=== PATIENT | female | born 1965 | race Caucasian/White ===

== ENCOUNTER → 2016-08-10 | Outpatient (REF) | payer MEDICAID ==
[2016-08-10 12:25] LABS: CHOLESTEROL LEVEL 189 MG/DL (<200); TRIGLYCERIDES LEVEL 61 MG/DL (<150)
[2016-08-11 09:48] LABS: CONTROL LINE INT CTR LINE PRESENT; HIV SCRN NEGATIVE (NEGATIVE); HIV SCRN1 NEGATIVE (NEGATIVE)
[2016-08-11 19:14] LABS: FREE T4 0.63 NG/DL (0.76-1.46)
== END | disposition home or self-care (01) ==
LOC: M LABDRAW1 11:01
PROVIDERS: ATTEND Internal Medicine
DX: Z13.1 Encounter for screening for diabetes mellitus (principal); Z11.4 Encounter for screening for human immunodeficiency virus [HIV]; Z13.220 Encounter for screening for lipoid disorders; R63.4 Abnormal weight loss

== ENCOUNTER → 2016-08-11 | Outpatient (REF) | payer MEDICAID | END | disposition home or self-care (01) | LOC: M SFHCPLAZ 18:38 | PROVIDERS: ATTEND Internal Medicine | DX: R79.89 Other specified abnormal findings of blood chemistry (principal) ==

== ENCOUNTER → 2016-12-17 | Outpatient (CLI) | payer OTHER ==
[2016-12-17 17:55] LABS: BASO % 0.6 % (0.0-1.0); EOS # 0.3 K/mm3 (0.0-0.50); EOS % 4.2 % (0.0-3.0); LARGE UNSTAINED CELL # 0.2 K/mm3 (0.0-0.4); LARGE UNSTAINED CELL % 2.4 % (0.0-4.0); LYMPH # 3.5 K/mm3 (1.5-4.5); LYMPH % 45.1 % (24.0-44.0); MEAN CORPUSCULAR HEMOGLOBIN 33.2 pg (27.0-33.0); MEAN CORPUSCULAR HGB CONC 32.6 g/dl (32.0-36.5); MEAN CORPUSCULAR VOLUME 101.9 fl (80.0-96.0); MONO # 0.3 K/mm3 (0.0-0.8); NEUTROPHILS # 3.2 K/mm3 (1.8-7.7); NEUTROPHILS % 43.8 % (36.0-66.0); PLATELET COUNT, AUTOMATED 269 k/mm3 (150-450); RED CELL DISTRIBUTION WIDTH 13.2 % (11.5-14.5); WHITE BLOOD COUNT 7.4 K/mm3 (4.0-10.0)
[2016-12-17 18:05] LABS: ALBUMIN 4.1 GM/DL (3.2-5.2); ALBUMIN/GLOBULIN RATIO 1.41 (1.00-1.93); ALKALINE PHOSPHATASE 77 U/L (45-117); ALT/SGPT 27 U/L (12-78); ANION GAP 6 MEQ/L (8-16); AST/SGOT 20 U/L (15-37); BILIRUBIN,TOTAL 0.4 MG/DL (0.2-1.0); BLOOD UREA NITROGEN 12 MG/DL (7-18); CALCIUM LEVEL 9.1 MG/DL (8.5-10.1); CARBON DIOXIDE LEVEL 29 MEQ/L (21-32); CHLORIDE LEVEL 105 MEQ/L (98-107); FREE T4 0.67 NG/DL (0.76-1.46); GLOMERULAR FILTRATION RATE > 60.0 (>51); GLUCOSE, FASTING 81 MG/DL (70-105); POTASSIUM SERUM 4.6 MEQ/L (3.5-5.1); SODIUM LEVEL 140 MEQ/L (136-145)
== END ==
LOC: M LAB 16:40
PROVIDERS: ATTEND Internal Medicine
DX: Z86.2 Personal history of diseases of the blood and blood-forming organs and certain disorders involving the immune mechanism (principal)

== ENCOUNTER → 2017-04-29 | Outpatient (REF) | payer OTHER | LOC: M SFHCWAGY 15:18 | PROVIDERS: ATTEND Nurse Practitioner Women's Health | DX: Z01.419 Encounter for gynecological examination (general) (routine) without abnormal findings (principal); Z11.51 Encounter for screening for human papillomavirus (HPV); Z11.3 Encounter for screening for infections with a predominantly sexual mode of transmission ==

== ENCOUNTER → 2017-06-13 | Outpatient (REF) | payer OTHER ==
[2017-06-13 18:27] LABS: BASO # 0.1 10^3/uL (0.0-0.2); BASO % 0.5 % (0.0-1.0); EOS # 0.3 10^3/uL (0.0-0.50); EOS % 2.1 % (0.0-3.0); IMMATURE GRANULOCYTE % 0.3 % (0-0); LYMPH # 3.5 10^3/uL (1.5-4.5); LYMPH % 29.3 % (24.0-44.0); MEAN CORPUSCULAR HEMOGLOBIN 33.2 pg (27.0-33.0); MEAN CORPUSCULAR HGB CONC 33.2 g/dl (32.0-36.5); MEAN CORPUSCULAR VOLUME 100.3 fl (80.0-96.0); MONO # 0.6 10^3/uL (0.0-0.8); NEUTROPHILS # 7.6 10^3/uL (1.8-7.7); NEUTROPHILS % 62.8 % (36.0-66.0); PLATELET COUNT, AUTOMATED 288 10^3/uL (150-450); RED CELL DISTRIBUTION WIDTH 13.5 % (11.5-14.5)
== END ==
LOC: M LABDRAW1 13:34
PROVIDERS: ATTEND Internal Medicine
DX: R79.89 Other specified abnormal findings of blood chemistry (principal); E03.9 Hypothyroidism, unspecified

== ENCOUNTER → 2017-11-25 | Outpatient (REF) | payer OTHER ==
[2017-11-25 18:41] LABS: ANION GAP 9 MEQ/L (8-16); BLOOD UREA NITROGEN 21 MG/DL (7-18); CALCIUM LEVEL 8.8 MG/DL (8.5-10.1); CARBON DIOXIDE LEVEL 25 MEQ/L (21-32); CHLORIDE LEVEL 107 MEQ/L (98-107); CREATININE FOR GFR 0.89 MG/DL (0.55-1.30); GLOMERULAR FILTRATION RATE > 60.0 (>51); GLUCOSE, FASTING 85 MG/DL (70-100); POTASSIUM SERUM 4.2 MEQ/L (3.5-5.1); SODIUM LEVEL 141 MEQ/L (136-145)
== END ==
LOC: M SFHCPLAZ 15:10
DX: R42 Dizziness and giddiness (principal); E03.9 Hypothyroidism, unspecified
CPT/HCPCS: 84443

== ENCOUNTER → 2017-11-26 | Outpatient (REF) | payer OTHER | LOC: M SFHCPLAZ 00:10 | DX: E03.9 Hypothyroidism, unspecified (principal) ==

== ENCOUNTER → 2018-07-13 | Outpatient (REF) | payer OTHER ==
[2018-07-13 16:35] LABS: FREE T4 0.61 NG/DL (0.76-1.46); THYROID STIMULATING HORMONE 24.7 uIU/ML (0.358-3.740)
== END ==
LOC: M SFHCPLAZ 13:07
DX: E03.9 Hypothyroidism, unspecified (principal)

== ENCOUNTER → 2018-08-25 | Outpatient (REF) | payer OTHER ==
[2018-08-25 18:51] LABS: FREE T4 1.1 NG/DL (0.76-1.46); THYROID STIMULATING HORMONE 6.3 uIU/ML (0.358-3.740)
== END ==
LOC: M SFHCPLAZ 14:43
DX: E03.9 Hypothyroidism, unspecified (principal)

== ENCOUNTER → 2018-09-05 | Outpatient (CLI) | payer OTHER ==
--- NOTE | 2018-09-05 11:31 | REPMRS ---
Patient History The patient states she had a clinical breast exam in 08/29 Patient has history of melanoma at age 38. Family history of unknown cancer at age 38 in sister. Digital Woman Screen Mammo: September 05, 2018 - Exam #: [id number] Bilateral CC and MLO view(s) were taken. Technologist: Marley Montgomery, Technologist Prior study comparison: April 29, 2017, digital woman screen mammo performed at [facility]. FINDINGS: The breast tissue is heterogeneously dense. This may lower the sensitivity of mammography. There is a moderate amount of heterogeneously dense fibroglandular tissue which is fairly symmetric. There is no interval development of dominant mass, architectural distortion, or clustered microcalcification typical of malignancy. There has been no change in the appearance of the mammogram from the prior studies. 3-D tomosynthesis shows no additional findings. Assessment: BI-RADS/ACR category 1 mammogram. Negative Mammogram. Recommendation Routine screening mammogram of both breasts in 1 year (for women over age 40). This patient's Lifetime Breast Cancer RIsk is estimated at 8.1 %. This mammogram was interpreted with the aid of an FDA-approved computer-aided dectection system. Electronically Signed By: Varun Roche MD 09/05/18 [id number]
== END ==
LOC: M WHC 09:33
PROVIDERS: ATTEND Nurse Practitioner Women's Health
DX: Z12.31 Encounter for screening mammogram for malignant neoplasm of breast (principal); Z85.820 Personal history of malignant melanoma of skin; Z80.8 Family history of malignant neoplasm of other organs or systems

== ENCOUNTER → 2018-09-05 | Outpatient (REF) | payer OTHER ==
[2018-09-08 14:22] LABS: HPV HYBRID CAPTURE II Negative (Negative)
== END ==
LOC: M SFHCWAGY 09:49
PROVIDERS: ATTEND Nurse Practitioner Women's Health
DX: Z01.419 Encounter for gynecological examination (general) (routine) without abnormal findings (principal); Z87.898 Personal history of other specified conditions; Z11.51 Encounter for screening for human papillomavirus (HPV)

== ENCOUNTER → 2018-10-06 | Outpatient (REF) | payer OTHER ==
[2018-10-06 17:49] LABS: FREE T4 1.49 NG/DL (0.76-1.46); THYROID STIMULATING HORMONE 0.867 uIU/ML (0.358-3.740)
== END ==
LOC: M SFHCPLAZ 14:34
DX: E03.9 Hypothyroidism, unspecified (principal)

== ENCOUNTER 2018-11-15 08:43 | Day surgery (SDC) | payer OTHER ==
[~2018-11-15] VITALS: Ht 157.5 cm; Wt 55.8 kg
[~2018-11-15 08:43] MED LIST: LIDOCAINE 2% INJ 100 MG/5 ML SDV (FOR ANES.) As Ordered ONE; NS 1,000 ML IV ONE; PROPOFOL 200 MG/20 ML VIAL As Ordered ONE; SYNT100T PO
[2018-11-15] MEDS ORDERED: PROPOFOL 200 MG/20 ML VIAL As Ordered ONE (09:46)
--- NOTE | 2018-11-15 09:52 | ROOR ---
Patient Name: Cynthia Link Procedure Date: 11/15/2018 9:19 AM Date of : 1965 Age: 53 Room: [facility] Gender: Female Note Status: Finalized Procedure: Total Colonoscopy to Cecum + Cold Snare Polypectomy + Hemoclips + ileoscopy Indications: Screening for colorectal malignant neoplasm, Last colonoscopy: 2007 Providers: Theron Motta MD Referring MD: Beverley RAI DO Requesting Provider: Medicines: Monitored Anesthesia Care Complications: No immediate complications. Procedure: Pre-Anesthesia Assessment: - The heart rate, respiratory rate, oxygen saturations, blood pressure, adequacy of pulmonary ventilation, and response to care were monitored throughout the procedure. The Colonoscope was introduced through the anus and advanced to the cecum, identified by appendiceal orifice and ileocecal valve. The colonoscopy was performed without difficulty. The patient tolerated the procedure well. The quality of the bowel preparation was good. Findings: The perianal and digital rectal examinations were normal. Non-bleeding internal hemorrhoids were found during retroflexion. The hemorrhoids were Grade I (internal hemorrhoids that do not prolapse). A large polyp was found in the proximal ascending colon. The polyp was sessile. The polyp was removed with a cold snare. Resection and retrieval were complete. To prevent bleeding after the polypectomy, three hemostatic clips were successfully placed (MR conditional). There was no bleeding at the end of the procedure. The exam was otherwise without abnormality on direct and retroflexion views. The terminal ileum appeared normal. Impression: - Non-bleeding internal hemorrhoids. - One large polyp in the proximal ascending colon, removed with a cold snare. Resected and retrieved. Clips (MR conditional) were placed. - The examination was otherwise normal on direct and retroflexion views. - The examined portion of the ileum was normal. - The exam was otherwise normal to the cecum. Recommendation: - Patient has a contact number available for emergencies. The signs and symptoms of potential delayed complications were discussed with the patient. Return to normal activities tomorrow. Written discharge instructions were provided to the patient. - High fiber diet. - Discharge patient to home. - Continue present medications. - Await pathology results. - Telephone GI clinic for pathology results in 1 week. - Repeat colonoscopy for surveillance based on pathology results. - Return to referring physician. - Check Portal Online for Path Results.([email or web address]) - The findings and recommendations were discussed with the patient's family. Theron Motta MD Theron Motta MD 11/15/2018 9:51:47 AM Electronically signed by Theron Motta MD Number of Addenda: 0 Note Initiated On: 11/15/2018 9:19 AM Estimated Blood Loss: Estimated blood loss: none.
[2018-11-15 10:10] VITALS: BP 125/74
== END 2018-11-15 10:24 | disposition home or self-care (01) ==
LOC: M OPP 08:43
PROVIDERS: ATTEND Internal Medicine Gastroenterology
DX: Z12.11 Encounter for screening for malignant neoplasm of colon (principal); D12.2 Benign neoplasm of ascending colon; K64.0 First degree hemorrhoids; E03.9 Hypothyroidism, unspecified; Z79.899 Other long term (current) drug therapy; F17.210 Nicotine dependence, cigarettes, uncomplicated

== ENCOUNTER → 2018-12-08 | Outpatient (REF) | payer OTHER ==
[~2018-12-08] MED LIST changes: -LIDOCAINE 2% INJ 100 MG/5 ML SDV (FOR ANES.) As Ordered ONE; -NS 1,000 ML IV ONE; -PROPOFOL 200 MG/20 ML VIAL As Ordered ONE
[2018-12-08 17:06] LABS: FREE T4 1.41 NG/DL (0.76-1.46); THYROID STIMULATING HORMONE 0.093 uIU/ML (0.358-3.740)
== END ==
LOC: M SFHCPLAZ 13:36
DX: E03.9 Hypothyroidism, unspecified (principal)

== ENCOUNTER → 2019-01-19 | Outpatient (REF) | payer OTHER ==
[2019-01-19 16:20] LABS: FREE T4 0.98 NG/DL (0.76-1.46); THYROID STIMULATING HORMONE 5.06 uIU/ML (0.358-3.740)
== END ==
LOC: M SFHCPLAZ 13:38
DX: E03.9 Hypothyroidism, unspecified (principal)

== ENCOUNTER → 2019-03-16 | Outpatient (REF) | payer OTHER ==
[2019-03-16 17:40] LABS: FREE T4 1.18 NG/DL (0.76-1.46); THYROID STIMULATING HORMONE 1.67 uIU/ML (0.358-3.740)
== END ==
LOC: M SFHCPLAZ 15:07
DX: E03.9 Hypothyroidism, unspecified (principal)

== ENCOUNTER → 2019-08-31 | Outpatient (REF) | payer OTHER ==
[2019-08-31 17:22] LABS: FREE T4 1.26 NG/DL (0.76-1.46); THYROID STIMULATING HORMONE 2.04 uIU/ML (0.358-3.740)
== END ==
LOC: M SFHCPLAZ 14:23
DX: E03.9 Hypothyroidism, unspecified (principal)

== ENCOUNTER → 2019-11-29 | Outpatient (REF) | payer OTHER ==
[2019-11-29 21:44] LABS: CHLAMYDIA DNA AMPLIFICATION NEGATIVE (NEGATIVE); GC DNA AMPLIFICATION NEGATIVE (NEGATIVE)
== END ==
LOC: M SFHCWAGY 16:55
PROVIDERS: ATTEND Nurse Practitioner Women's Health
DX: Z11.3 Encounter for screening for infections with a predominantly sexual mode of transmission (principal)

== ENCOUNTER 2020-01-07 18:31 | Observation (INO) | payer OTHER ==
[~2020-01-07] VITALS: Ht 157.5 cm; Wt 63.1 kg
[2020-01-07] MEDS ORDERED: ESCI10TA2 PO (18:38)
[2020-01-07] MEDS ORDERED: METOCLOPRAMIDE INJ 10MG/2ML VIAL (J2765 PER 1) IV ONE (19:15)
[2020-01-07] MEDS ORDERED: ACETAMINOPHEN 500 MG TAB PO ONE (19:15)
[2020-01-07] MEDS ORDERED: ISOVUE-370 76% 100ML VIAL As Ordered ONE (19:25)
--- NOTE | 2020-01-07 19:25 | REP ---
Clinical: Acute chest pain . Comparison: 04/24/2016 . Findings: The mediastinum and cardiac silhouette are stable and within normal limits for portable technique. The lung arana are clear without acute consolidation, effusion, or pneumothorax. Skeletal structures are intact. Impression: No acute cardiopulmonary process appreciated. Electronically Signed by Ronen Jarrell MD 01/07/2020 07:17 P
[2020-01-07 19:31] LABS: HEMATOCRIT 40.9 % (36.0-47.0); HEMOGLOBIN 13.4 g/dl (12.0-15.5); MEAN CORPUSCULAR HEMOGLOBIN 33.1 pg (27.0-33.0); MEAN CORPUSCULAR HGB CONC 32.8 g/dl (32.0-36.5); PLATELET COUNT, AUTOMATED 328 10^3/uL (150-450); RED BLOOD COUNT 4.05 10^6/uL (4.00-5.40); WHITE BLOOD COUNT 9.8 10^3/uL (4.0-10.0)
[2020-01-07 19:42] LABS: INR 0.94; PROTHROMBIN TIME 12.3 SECONDS (11.8-14.0)
[2020-01-07 20:07] LABS: ALBUMIN 3.7 GM/DL (3.2-5.2); ALT/SGPT 22 U/L (12-78); BILIRUBIN,DIRECT < 0.1 MG/DL (0.0-0.2); BILIRUBIN,TOTAL 0.2 MG/DL (0.2-1.0); CK-MB VALUE MASS < 1.0 NG/ML (<3.6); CPK CREATINE PHOSPHOKINASE 120 U/L (26-192); LIPASE 125 U/L (73-393); MB/CK RELATIVE INDEX 0.83 (< OR =4); TOTAL PROTEIN 6.9 GM/DL (6.4-8.2); TROPONIN I < 0.02 NG/ML (< 0.10)
--- NOTE | 2020-01-07 20:09 | REPVR ---
PROCEDURE INFORMATION: Exam: CT Angiography Neck With Contrast Exam date and time: 01/07/2020 7:27 PM Age: 54 years old Clinical indication: Numbness; Additional info: Arm numbness/headache TECHNIQUE: Imaging protocol: Computed tomography angiography of the neck with intravenous contrast. 3D rendering: MIP and/or 3D reconstructed images were created by the technologist. Radiation optimization: All CT scans at this facility use at least one of these dose optimization techniques: automated exposure control; mA and/or kV adjustment per patient size (includes targeted exams where dose is matched to clinical indication); or iterative reconstruction. Contrast material: ISOVUE 370; Contrast volume: 100 ml; Contrast route: INTRAVENOUS (IV); COMPARISON: No relevant prior studies available. FINDINGS: Right common carotid artery: No stenosis. No dissection or occlusion. Right internal carotid artery: No stenosis of the extracranial segment. No dissection or occlusion. Right external carotid artery: No occlusion or stenosis of the origin. Right vertebral artery: No stenosis. No dissection or occlusion. Left common carotid artery: No stenosis. No dissection or occlusion. Left internal carotid artery: No stenosis of the extracranial segment. No dissection or occlusion. Left external carotid artery: No occlusion or stenosis of the origin. Left vertebral artery: No stenosis. No dissection or occlusion. Bones/joints: No acute fracture. Soft tissues: Normal. No significant soft tissue swelling. Lungs: Emphysematous changes in bilateral lung apices. IMPRESSION: No acute abnormality. REFERENCES: NASCET CRITERIA. The degree of internal carotid artery stenosis is based on NASCET criteria. Normal is no stenosis. Mild is less than 50% stenosis. Moderate is 50-69% stenosis. Severe is 70% to 99% stenosis. Total occlusion is no detectable patent lumen. Electronically signed by: Orlando George On 01/07/2020 20:09:24 PM
--- NOTE | 2020-01-07 20:14 | REPVR ---
PROCEDURE INFORMATION: Exam: CT Angiography Head With Contrast Exam date and time: 01/07/2020 7:27 PM Age: 54 years old Clinical indication: Numbness; Additional info: Arm numbness/headache TECHNIQUE: Imaging protocol: Computed tomography angiography of the head with intravenous contrast. 3D rendering: MIP and/or 3D reconstructed images were created by the technologist. Radiation optimization: All CT scans at this facility use at least one of these dose optimization techniques: automated exposure control; mA and/or kV adjustment per patient size (includes targeted exams where dose is matched to clinical indication); or iterative reconstruction. Contrast material: ISOVUE 370; Contrast volume: 100 ml; Contrast route: INTRAVENOUS (IV); COMPARISON: No relevant prior studies available. FINDINGS: Anterior cerebral arteries: No occlusion or significant stenosis. No aneurysm. Right internal carotid artery: Intracranial segment is patent with no significant stenosis or occlusion. No aneurysm. Right middle cerebral artery: No occlusion or significant stenosis. No aneurysm. Right posterior cerebral artery: No occlusion or significant stenosis. No aneurysm. Right vertebral artery: No occlusion or significant stenosis. No aneurysm. Left internal carotid artery: Intracranial segment is patent with no significant stenosis or occlusion. No aneurysm. Left middle cerebral artery: No occlusion or significant stenosis. No aneurysm. Left posterior cerebral artery: No occlusion or significant stenosis. No aneurysm. Left vertebral artery: No occlusion or significant stenosis. No aneurysm. Basilar artery: No occlusion or significant stenosis. No aneurysm. IMPRESSION: No acute abnormality. Electronically signed by: Orlando George On 01/07/2020 20:14:19 PM
--- NOTE | 2020-01-07 20:15 | REPVR ---
PROCEDURE INFORMATION: Exam: CT Head Without Contrast Exam date and time: 01/07/2020 7:27 PM Age: 54 years old Clinical indication: Other: Arm numbness; Additional info: Arm numbness/headache TECHNIQUE: Imaging protocol: Computed tomography of the head without contrast. Radiation optimization: All CT scans at this facility use at least one of these dose optimization techniques: automated exposure control; mA and/or kV adjustment per patient size (includes targeted exams where dose is matched to clinical indication); or iterative reconstruction. COMPARISON: No relevant prior studies available. FINDINGS: Brain: Normal. No hemorrhage. Unremarkable white matter. No mass effect. Ventricles: Normal. No ventriculomegaly. Bones/joints: Unremarkable. No acute fracture. Sinuses: Visualized sinuses are unremarkable. No fluid levels. Mastoid air cells: Visualized mastoid air cells are well aerated. Soft tissues: Unremarkable. IMPRESSION: No acute intracranial abnormality. Electronically signed by: Orlando George On 01/07/2020 20:15:34 PM
[2020-01-07 20:24] LABS: ATYPICAL LYMPH 24 % (0-5); BASOPHILS 2 % (0-1); EOSINOPHILS 4 % (0-3); LYMPHOCYTES 36 % (16-44); MONOCYTES 2 % (0-5); NEUTROPHILS 32 % (28-66); OVALOCYTES 1+; PLATELET ESTIMATE NORMAL (NORMAL); POIKILOCYTOSIS 1+
[2020-01-07] MEDS ORDERED: ASPIRIN 325 MG TAB PO ONE (20:30)
[2020-01-07] MEDS: HEPARIN SOD (PORCINE) 5000UNITS/ML VIAL (J1644 PER 1000UNITS) SC SCH (21:00)
[2020-01-07] MEDS: ATORVASTATIN 20 MG TAB PO SCH (21:00)
[2020-01-07] MEDS: ESCITALOPRAM OXALATE 10 MG TAB (LEXAPRO) PO SCH (21:00)
[2020-01-07] MEDS ORDERED: ASPIRIN 81 MG CHEW TABLET PO ONE (21:15)
--- NOTE | 2020-01-07 21:33 | HPEPDOC ---
General Date of Admission 01/07/20 Date of Service: Jan 07, 2020 Chief Complaint The patient is a 54-year-old female admitted with a reason for visit of Headache, High Blood Pressure. Source: Patient Exam Limitations: No limitations Severity: Mild History of Present Illness Patient is 54 years old female with past medical history of migraine, active smoking, hypothyroidism, depression presented to the hospital with severe fronta l headache and paresthesias of the left arm. Patient stated that in the morning she started feeling lightheadedness, sweating, she stated that she had almost syncopized. She went home from her work and went to bed. When she woke up she started feeling severe headache 7 out of 10, frontal associated with left arm numbness. However patient stated that she slept on her left side recumbent position. In ER imaging study was negative, neurologist recommended to admit patient to the hospital for stroke workup. Home Medications Scheduled Escitalopram Oxalate (Escitalopram Oxalate) 10 Mg Tablet, 10 MG PO QHS, (Reported) Levothyroxine Sodium (Synthroid) 100 Mcg Tablet, 100 MCG PO QAM, (Reported) Allergies Coded Allergies: No Known Allergies (Verified , 03/26/04) Past Medical History Medical History migraine, active smoking, hypothyroidism, depression Family History Mother had a stroke and diabetes mellitus Father had PR and diabetes Social History * Smoker: current smoker Alcohol: occationally Drugs: denies A-FIB/CHADSVASC A-FIB History Current/History of A-Fib/PAF?: No Current PO Anticoag Therapy: No Review of Systems Constitutional: Denies: Chills Eyes: Denies: Pain, Vision change ENT: Reports: Head Aches Skin: Denies: Rash, Lesions Pulmonary: Denies: Dyspnea, Cough Cardiovascular: Denies: Chest Pain, Palpitations Gastrointestinal: Denies: Nausea, Vomiting Genitourinary: Denies: Dysuria, Frequency Hematologic: Denies: Bruising Endocrine: Denies: Polydipsia, Polyphagia Musculoskeletal: Denies: Neck Pain, Back Pain Neurological: Reports: Numbness (left arm, but when I saw patient , she didn't have it); Denies: Weakness Psych: Reports: Mood Normal Physical Examination General Exam: Positive: Alert, Cooperative Eye Exam: Positive: PERRLA ENT Exam: Positive: Atraumatic Neck Exam: Positive: Supple; Negative: JVD Chest Exam: Positive: Clear to auscultation Heart Exam: Positive: Rate Normal, Tachycardic Telemetry: Positive: No significant arrhythmia Abdomen Exam: Positive: Normal bowel sounds Extremity Exam: Negative: Clubbing, Cyanosis Skin Exam: Positive: Nl turgor and temperature Neuro Exam: Positive: Strength at 5/5 X4 ext, Sensation Intact, Reflexes 2+ Psych Exam: Positive: Mental status NL, Oriented x 3 Vital Signs Vital Signs Date Time Temp Pulse Resp B/P (MAP) Pulse Ox O2 Delivery O2 Flow Rate FiO2 01/07/20 19:01 79 98 01/07/20 18:31 98.1 16 168/76 (106) Room Air Laboratory Data Labs 24H Laboratory Tests 2 01/07/20 19:17: Neutrophils (%) (Auto) , Nucleated Red Blood Cells % (auto) 0.0, Neutrophils 32, Lymphocytes (Manual) 36, Monocytes (Manual) 2, Eosinophils (Manual) 4H, Basophils (Manual) 2H, Atypical Lymphocytes 24H, Poikilocytosis 1+, Macrocytosis 2+, Ovalocytes 1+, Platelet Estimate NORMAL, Prothrombin Time 12.3, Prothromb Time International Ratio 0.94, POC Glucose (Misc Panel) 131H, POC Sodium (Misc Panel) 141, POC Potassium (Misc Panel) 4.1, POC Chloride (Misc Panel) 104, POC Total CO2 (Misc Panel) 25.0, POC Blood Urea Nitrogen (Misc Panel 22, POC Ionized Calcium (Misc Panel) 4.8, POC Creatinine (Misc Panel) 0.8, POC Hematocrit (Misc Panel) 41.0, Total Bilirubin 0.2, Direct Bilirubin < 0.1, Aspartate Amino Transf (AST/SGOT) 19, Alanine Aminotransferase (ALT/SGPT) 22, Alkaline Phosphatase 87, Total Creatine Kinase 120, Creatine Kinase MB < 1.0, Creatine Kinase MB Relative Index 0.83, Troponin I < 0.02, Total Protein 6.9, Albumin 3.7, Albumin/Globulin Ratio 1.2, Lipase 125 CBC/BMP Laboratory Tests 01/07/20 19:17 Assessment/Plan Patient is 54 years old female with past medical history of migraine, active smoking, hypothyroidism, depression presented to the hospital with severe frontal headache and paresthesias of the left arm. Patient stated that in the morning she started feeling lightheadedness, sweating, she stated that she had almost syncopized. She went home from her work and went to bed. When she woke up she started feeling severe headache 7 out of 10, frontal associated with left arm numbness. However patient stated that she slept on her left side recumbent position. In ER imaging study was negative, neurologist recommended to admit patient to the hospital for stroke workup Problems (1) TIA (transient ischemic attack) Status: Acute Problem Text: Differential diagnosis includes TIA, manifestation of migraine. Neurological exam benign CT, CTA negative We'll proceed with MRI Aspirin 325, statin Will check lipid profile Consider neurological consult in the morning Plan / VTE VTE Prophylaxis Ordered?: Yes MARIA T WAHL DO Jan 07, 2020 21:33
[2020-01-07 22:08] LABS: CHOLESTEROL LEVEL 223 MG/DL (<200); HDL CHOLESTEROL 65 MG/DL (>40); LDL CHOLESTEROL 132 MG/DL (<100); NON-HDL-C 158 MG/DL; TRIGLYCERIDES LEVEL 129 MG/DL (<150)
--- NOTE | 2020-01-07 22:17 | REPVR ---
PROCEDURE INFORMATION: Exam: MR Head Without Contrast Exam date and time: 01/07/2020 10:06 PM Age: 54 years old Clinical indication: Other: High BP, headache; Additional info: Stroke TECHNIQUE: Imaging protocol: MR of the head without contrast. COMPARISON: CT Head without contrast 01/07/2020 7:25 PM FINDINGS: Brain: No acute infarct. Ventricles: Normal. No ventriculomegaly. Bones/joints: Unremarkable. Sinuses: Normal as visualized. No acute sinusitis. Mastoid air cells: Normal as visualized. No mastoid effusion. Orbits: Unremarkable. Soft tissues: Unremarkable. IMPRESSION: No acute intracranial abnormality. Electronically signed by: Orlando George On 01/07/2020 22:16:58 PM
[2020-01-08] MEDS: LEVOTHYROXINE 100MCG TABLET (0.1MG) PO SCH (05:50)
[2020-01-08 07:58] LABS: HEMATOCRIT 37.3 % (36.0-47.0); HEMOGLOBIN 12.4 g/dl (12.0-15.5); MEAN CORPUSCULAR HEMOGLOBIN 33.7 pg (27.0-33.0); MEAN CORPUSCULAR HGB CONC 33.2 g/dl (32.0-36.5); MEAN CORPUSCULAR VOLUME 101.4 fl (80.0-96.0); PLATELET COUNT, AUTOMATED 280 10^3/uL (150-450); RED BLOOD COUNT 3.68 10^6/uL (4.00-5.40); WHITE BLOOD COUNT 6.2 10^3/uL (4.0-10.0)
[2020-01-08 08:19] LABS: BLOOD UREA NITROGEN 14 MG/DL (7-18); CALCIUM LEVEL 8.5 MG/DL (8.5-10.1); CARBON DIOXIDE LEVEL 24 MEQ/L (21-32); CHLORIDE LEVEL 111 MEQ/L (98-107); CREATININE FOR GFR 0.87 MG/DL (0.55-1.30); GLOMERULAR FILTRATION RATE > 60.0 (>51); GLUCOSE, FASTING 158 MG/DL (70-100); POTASSIUM SERUM 3.9 MEQ/L (3.5-5.1); SODIUM LEVEL 142 MEQ/L (136-145)
[2020-01-08 09:31] VITALS: BP 116/61
[2020-01-08] MEDS: HEPARIN SOD (PORCINE) 5000UNITS/ML VIAL (J1644 PER 1000UNITS) SC SCH ×2 (09:42→20:37)
--- NOTE | 2020-01-08 10:28 | REP ---
DUPLEX CAROTID SONOGRAPHY: HISTORY: TIA. FINDINGS: Antegrade flow was observed in both vertebral arteries. RIGHT CAROTID: The right common carotid artery shows minimal diffuse intimal thickening. There is mild soft plaquing in the right carotid bulb and proximal ICA. Color flow and spectral Doppler interrogation are unremarkable on the right. Velocity Chart Right Carotid: PSV EDV Right CCA 94 cm/s Right ICA 78 cm/s 30 cm/s Right ECA 57 cm/s Right ICA/CCA ratio normal 0.8. IMPRESSION: Less than 50% category narrowing by velocity criteria right carotid. LEFT CAROTID: The left common carotid artery is unremarkable except for mild diffuse intimal thickening. There is minimal soft plaquing in the bulb and proximal ICA on the left. Color flow and spectral Doppler interrogation are unremarkable on the left. Velocity Chart Left Carotid: PSV EDV Left CCA 96 cm/s Left ICA 75 cm/s 26 cm/s Left ECA 61 cm/s Left ICA/CCA ratio normal 0.80. IMPRESSION: Less than 50% category narrowing in the left ICA by Doppler velocity criteria. Electronically Signed by Robert Roche MD 01/08/2020 11:11 A
[2020-01-08 10:46] VITALS: BP 137/67
[2020-01-08 12:00] VITALS: BP 130/64
[2020-01-08] MEDS ORDERED: ACETAMINOPHEN TAB 650MG DOSE (2X325MG) PO PRN (13:00)
[2020-01-08] MEDS: lisinopriL 5 MG TAB PO SCH (14:44)
[2020-01-08 14:45] VITALS: BP 136/62
--- NOTE | 2020-01-08 16:19 | ECGEPIP ---
[facility] - ED Test Date: 2020-01-07 Pat Name: ANGELI LEW Department: Room: 01 Gender: Female Hammer Smith: NATALIYA : 1965 Requested By: LONG Glover Order Number: [id number] Reading MD: Ashanti Marquis Measurements Intervals [place] Rate: 73 P: 70 AL: 143 QRS: 75 QRSD: 94 T: 60 QT: 378 QTc: 417 Interpretive Statements SINUS RHYTHM NO PRIOR Electronically Signed on 01-08-2020 16:19:32 EDT by Ashanti Marquis
--- NOTE | 2020-01-08 19:56 | ECHO ---
DATE OF PROCEDURE: 01/08/2020 Date of : 1965 Age: 54 Gender: Female Height: 62 inches Weight: 136 pounds Body surface area: 1.62 meters squared Inpatient: Progressive care unit (PCU), room 3229 REFERRING PHYSICIAN: Dr. Mindi Pena INDICATION: Transient ischemic attack (TIA). MEASUREMENTS: 2D Measurements: RV: 2.9 cm LV: 3.6 cm Septum: 1.0 cm Posterior wall: 1.0 cm Aortic root: 3.4 cm LA: 3.3 cm LVEF: 75% Doppler Measurements: AV: 1.13 meters per second LVOT: 1.0 meters per second LVOT diameter: 1.6 cm MV-E: 89, A: 97, EA ratio: 0.9 Early mitral deceleration time: 187 milliseconds E prime medial: 7.1, A prime medial: 9.5, E prime lateral: 6.9. Average E/E prime ratio: 12.7/PCWP: 18 mmHg. PV: 0.8 meters per second Pulmonary artery acceleration time: 127 milliseconds RVSP: 29 mmHg IVC: 1.8 cm COMMENTS: Normal sinus rhythm without intraventricular conduction disturbance. M-mode and two-dimensional echocardiography was performed with pulsed, continuous wave, color flow and tissue Doppler studies. Normal left ventricular size, wall thickness and wall motion. Normal left atrial size but grade 1 LV diastolic dysfunction and currently mildly elevated estimated mean left atrial pressure. Normal right heart chamber sizes and motion and estimated pulmonary arterial pressure. Normal inferior vena cava (IVC) size and collapse against an elevated central venous pressure. Normal aortic dimensions. A degree of aortic valvular thickening without functional valvular abnormality. Slightly thickened mitral valvular apparatus with normal leaflet excursion and no posterior systolic buckling and only trace mitral insufficiency. Normal appearing tricuspid valve with very mild insufficiency. No clear-cut pedunculated vegetation or intracardiac mass was visualized. No pericardial effusion. If a cardiac source of embolic material is seriously suspect, would recommend a transesophageal echocardiogram to further evaluate valvular structures.
[2020-01-08] MEDS: ESCITALOPRAM OXALATE 10 MG TAB (LEXAPRO) PO SCH (20:36)
[2020-01-08] MEDS: ATORVASTATIN 20 MG TAB PO SCH (20:36)
[2020-01-09] VITALS: BP 127/57
[2020-01-09 05:08] LABS: HEMATOCRIT 36.2 % (36.0-47.0); HEMOGLOBIN 11.8 g/dl (12.0-15.5); MEAN CORPUSCULAR HEMOGLOBIN 33.1 pg (27.0-33.0); MEAN CORPUSCULAR HGB CONC 32.6 g/dl (32.0-36.5); MEAN CORPUSCULAR VOLUME 101.4 fl (80.0-96.0); PLATELET COUNT, AUTOMATED 281 10^3/uL (150-450); RED BLOOD COUNT 3.57 10^6/uL (4.00-5.40); WHITE BLOOD COUNT 7.9 10^3/uL (4.0-10.0)
[2020-01-09 05:33] LABS: ALBUMIN 3.1 GM/DL (3.2-5.2); ALT/SGPT 21 U/L (12-78); BILIRUBIN,TOTAL 0.2 MG/DL (0.2-1.0); BLOOD UREA NITROGEN 17 MG/DL (7-18); CALCIUM LEVEL 8.6 MG/DL (8.5-10.1); CARBON DIOXIDE LEVEL 26 MEQ/L (21-32); CHLORIDE LEVEL 110 MEQ/L (98-107); CREATININE FOR GFR 0.76 MG/DL (0.55-1.30); GLOMERULAR FILTRATION RATE > 60.0 (>51); GLUCOSE, FASTING 98 MG/DL (70-100); POTASSIUM SERUM 4.5 MEQ/L (3.5-5.1); SODIUM LEVEL 142 MEQ/L (136-145); TOTAL PROTEIN 5.8 GM/DL (6.4-8.2)
[2020-01-09] MEDS: LEVOTHYROXINE 100MCG TABLET (0.1MG) PO SCH (05:56)
[2020-01-09 08:00] VITALS: BP 110/60
[2020-01-09 09:00] VITALS: BP 110/60
[2020-01-09] MEDS: lisinopriL 5 MG TAB PO SCH (09:00)
[2020-01-09] MEDS: HEPARIN SOD (PORCINE) 5000UNITS/ML VIAL (J1644 PER 1000UNITS) SC SCH (09:34)
--- NOTE | 2020-01-09 10:08 | DSES ---
DATE OF ADMISSION: 01/07/2020 DATE OF DISCHARGE: 01/09/2020 PRINCIPAL DIAGNOSIS: Probable complicated migraine versus neurapraxia, left arm from sleeping position. HISTORY: Cynthia Miles woke up with a throbbing headache and her left arm was numb. She slept on her arm but because of the headache came to the emergency room. She was admitted for further therapy. HOSPITAL COURSE: Patient admitted to a progressive care unit (PCU) bed. I do not have any notes from her first full day of hospitalization. I saw her on the second day full day of hospitalization. Her arm is back to normal. She thought she just slept on it wrong. Denies any neurologic symptoms. Walking the artis without difficulty. No weakness, numbness, palpitations or paresthesias. LABS: MRI of the brain was normal. Carotid ultrasound was normal, less than 50% bilaterally. CT angiogram of the head was normal. She had a neck CT angiogram that was normal. Significant labs: Today sodium is 142, potassium 4.5, BUN 17, creatinine 0.7, glucose 98. White count 7.9, hemoglobin 11.8, platelets 281. On the day of discharge, her blood pressure is 110/60, pulse 56, respiratory rate 18, 98% oxygen saturations. She is alert, conversant, no acute distress. No dysarthria, facial droop or weakness. Lungs clear. Heart regular rhythm. Abdomen soft, nontender. No peripheral edema. Normal strength, reflexes, coordination and sensation on individual testing. Gait is normal. An echocardiogram was performed. It was essentially normal. Left atrium 32 mm, ejection fraction 75%. No significant valvular abnormalities. DISPOSITION: Discharged home improved in stable condition. She is followed by the residency clinic. She should followup there as well in a week. 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 Diet is as tolerated. No added salt. No restriction of activities. Her medications will continue to be Lexapro 10 at bedtime, levothyroxine 100 mcg daily. She was started on lisinopril 5 mg on admission. Her pressure is soft this morning 110/60 and her lisinopril had been held. I think her blood pressure is up due to situational anxiety and pain from the headache and I did not continue the lisinopril at discharge as her blood pressures have been low today.
[2020-01-09 12:00] VITALS: BP 135/70
== END 2020-01-09 12:42 | disposition home or self-care (01) ==
LOC: M ED 18:31 → M ED INP 18:32 → ENRESERV 01-08 06:30 → M PCU 01-08 09:09
PROVIDERS: ADMIT Internal Medicine; ATTEND Internal Medicine
DX: R51 Headache (principal); R20.2 Paresthesia of skin; R03.0 Elevated blood-pressure reading, without diagnosis of hypertension; G43.909 Migraine, unspecified, not intractable, without status migrainosus; E03.9 Hypothyroidism, unspecified; F32.9 Major depressive disorder, single episode, unspecified; F17.210 Nicotine dependence, cigarettes, uncomplicated; Z82.3 Family history of stroke; Z83.3 Family history of diabetes mellitus; Z82.49 Family history of ischemic heart disease and other diseases of the circulatory system; Z79.899 Other long term (current) drug therapy
CPT/HCPCS: 36415; 70450; 70496; 70498; 70551; 71045; 80047; 80048; 80053; 80061; 80076; 82550; 82553; 83690; 83735; 85025; 85027; 85610; 93005; 93041; 93306; 93880; 94760; 96372; 96374; 97161; 97165; 99284; 99285; J1644; J2765; Q9967

== ENCOUNTER → 2020-11-17 | Outpatient (REF) | payer OTHER ==
[~2020-11-17] MED LIST changes: +ESCI10TA16 PO
[2020-11-17 15:26] LABS: BASO # 0.1 10^3/uL (0.0-0.2); BASO % 0.9 % (0.0-1.0); EOS # 0.4 10^3/uL (0.0-0.5); EOS % 4.5 % (0.0-3.0); HEMATOCRIT 39.2 % (36.0-47.0); HEMOGLOBIN 12.8 g/dl (12.0-15.5); LYMPH # 3.2 10^3/uL (1.5-5.0); LYMPH % 37.4 % (24.0-44.0); MEAN CORPUSCULAR HEMOGLOBIN 33.3 pg (27.0-33.0); MEAN CORPUSCULAR HGB CONC 32.7 g/dl (32.0-36.5); MEAN CORPUSCULAR VOLUME 102.1 fl (80.0-96.0); MONO # 0.6 10^3/uL (0.0-0.8); MONO % 6.8 % (2.0-8.0); NEUTROPHILS # 4.2 10^3/uL (1.5-8.5); NEUTROPHILS % 49.9 % (36.0-66.0); PLATELET COUNT, AUTOMATED 309 10^3/uL (150-450); RED BLOOD COUNT 3.84 10^6/uL (4.00-5.40); WHITE BLOOD COUNT 8.5 10^3/uL (4.0-10.0)
[2020-11-17 16:01] LABS: ALT/SGPT 19 U/L (12-78); BILIRUBIN,TOTAL 0.3 MG/DL (0.2-1.0); BLOOD UREA NITROGEN 16 MG/DL (7-18); CALCIUM LEVEL 9.4 MG/DL (8.5-10.1); CARBON DIOXIDE LEVEL 28 MEQ/L (21-32); CHLORIDE LEVEL 108 MEQ/L (98-107); CREATININE FOR GFR 0.75 MG/DL (0.55-1.30); GLOMERULAR FILTRATION RATE > 60.0 (>51); GLUCOSE, FASTING 79 MG/DL (70-100); POTASSIUM SERUM 4.1 MEQ/L (3.5-5.1); SODIUM LEVEL 141 MEQ/L (136-145); TOTAL PROTEIN 7.2 GM/DL (6.4-8.2)
[2020-11-17 21:02] LABS: FREE T4 0.89 NG/DL (0.76-1.46)
== END ==
LOC: M SFHCPLAZ 13:16
PROVIDERS: ATTEND Family Medicine
DX: R42 Dizziness and giddiness (principal); E03.9 Hypothyroidism, unspecified

== ENCOUNTER → 2021-01-06 | Outpatient (CLI) | payer OTHER ==
--- NOTE | 2021-01-06 16:30 | REP ---
INDICATION: PAIN IN LEFT HIP. COMPARISON: 10/05/2013 TECHNIQUE: AP and frog-lateral views FINDINGS: Once again, the hip joint space is symmetric and relatively well maintained. No acute fracture, dislocation, subluxation, or buttressing has developed. IMPRESSION: Within normal limits. Essentially unchanged from the prior exam. <Electronically signed by Marcio Rose > 01/06/21 [id number]
== END ==
LOC: M RAD 16:02
PROVIDERS: ATTEND Student in an Organized Health Care Education/Training Program
DX: M25.552 Pain in left hip (principal)

== ENCOUNTER → 2021-01-08 | Outpatient (CLI) | payer OTHER ==
[2021-01-08 18:37] LABS: HIV 1&2 SCREEN CENTAUR NEGATIVE (NEGATIVE)
== END ==
LOC: M PLALAB 15:06
PROVIDERS: ATTEND Student in an Organized Health Care Education/Training Program
DX: E03.9 Hypothyroidism, unspecified (principal)

== ENCOUNTER → 2021-01-14 | Outpatient (CLI) | payer OTHER ==
--- NOTE | 2021-01-14 10:23 | REP ---
INDICATION: CLARK SCR MAMMO. COMPARISON: Multiple TECHNIQUE: Digital screening mammography was carried out bilaterally in the CC and MLO projections using both 2D and 3D modalities and compared to the prior exams. By history, patient has no complaints of a palpable breast abnormality or other significant breast complaints. FINDINGS: The breasts are unchanged in size and shape. Once again, dense heterogenous fibroglandular elements are bilaterally to such a degree that the sensitivity of the mammogram in detecting cancers decreased. In the left breast retroareolar region lower slightly outer aspect there is a small potential eros density. No other suspicious features are seen in either breast. Stable benign calcifications are seen bilaterally. There is no skin thickening or nipple retraction. The Volpara volumetric breast density pattern is C. IMPRESSION: BIRADS/ACR category 0 mammogram. Potential eros density seen in the left breast as described above for which diagnostic digital magnified spot compression views are recommended in the CC and MLO projections along with diagnostic ultrasonography if indicated. This patient's Tyrer-Cuzick lifetime breast cancer risk assessment score is 7.6%. This mammogram was interpreted with the aid of an FDA-approved computer-aided detection system. The patient states she had a clinical breast exam in January 2021. The patient letter being requested is M0 RECOMMENDATION: As above <Electronically signed by Marcio Rose > 01/14/21 0792
== END ==
LOC: M WHC 08:43 → M WBI 08:43
PROVIDERS: ATTEND Nurse Practitioner Women's Health
DX: Z12.31 Encounter for screening mammogram for malignant neoplasm of breast (principal)

== ENCOUNTER → 2021-01-14 | Outpatient (REF) | payer OTHER | LOC: M SFHCWAGY 13:09 | PROVIDERS: ATTEND Nurse Practitioner Women's Health | DX: Z12.72 Encounter for screening for malignant neoplasm of vagina (principal); Z01.419 Encounter for gynecological examination (general) (routine) without abnormal findings ==

== ENCOUNTER 2021-01-22 16:19 | Emergency (ER) | payer OTHER ==
[~2021-01-22] VITALS: Ht 157.5 cm; Wt 66.4 kg
[2021-01-22] MEDS ORDERED: ACETAMINOPHEN 325 MG TAB PO ONE (16:45)
--- NOTE | 2021-01-22 17:02 | REP ---
INDICATION: CHEST PAIN. COMPARISON: Comparison portable chest x-ray January 07, 2020. TECHNIQUE: Portable upright AP chest radiograph. FINDINGS: There is increased density behind the heart in the left base and a portion of the left hemidiaphragm is obscured. This may be infiltrate and or a small quantity of left pleural fluid. It is unchanged from the comparison radiograph. Heart is not enlarged. Lung arana are otherwise clear. Pulmonary vasculature is not increased.. No acute bony abnormality. There are 2 orthopedic anchors in the left glenoid. IMPRESSION: Increased density left base partially obscuring left hemidiaphragm. Infiltrate and/or effusion suspected.. <Electronically signed by Varun Roche > 01/22/21 [id number]
--- NOTE | 2021-01-22 17:06 | ECGEPIP ---
[facility] - ED Test Date: 2021-01-22 Pat Name: ANGELI LEW Department: Room: - Gender: Female [employer] Technician: JT : 1965 Requested By: ANDREWS ALLEN Order Number: [id number] Reading MD: Andrews Chavez Measurements Intervals [place] Rate: 115 P: 83 WI: 122 QRS: 79 QRSD: 80 T: 51 QT: 286 QTc: 395 Interpretive Statements Sinus tachycardia Possible Left atrial enlargement Baseline artifact Similar to tracing done 01-07-20 Electronically Signed on 01-22-2021 17:05:55 EDT by Andrews Chavez
[2021-01-22 17:15] LABS: BASO % 0.3 % (0.0-1.0); EOS # 0.2 10^3/uL (0.0-0.5); EOS % 1.6 % (0.0-3.0); HEMATOCRIT 40.2 % (36.0-47.0); HEMOGLOBIN 13.5 g/dl (12.0-15.5); LYMPH # 1.9 10^3/uL (1.5-5.0); LYMPH % 13.7 % (24.0-44.0); MEAN CORPUSCULAR HEMOGLOBIN 33.4 pg (27.0-33.0); MEAN CORPUSCULAR HGB CONC 33.6 g/dl (32.0-36.5); MEAN CORPUSCULAR VOLUME 99.5 fl (80.0-96.0); MONO # 0.6 10^3/uL (0.0-0.8); MONO % 4.2 % (2.0-8.0); NEUTROPHILS # 11.3 10^3/uL (1.5-8.5); NEUTROPHILS % 79.6 % (36.0-66.0); PLATELET COUNT, AUTOMATED 285 10^3/uL (150-450); RED BLOOD COUNT 4.04 10^6/uL (4.00-5.40); WHITE BLOOD COUNT 14.2 10^3/uL (4.0-10.0)
[2021-01-22 17:40] LABS: ALT/SGPT 51 U/L (12-78); BILIRUBIN,DIRECT < 0.1 MG/DL (0.0-0.2); BILIRUBIN,TOTAL 0.3 MG/DL (0.2-1.0); LIPASE 77 U/L (73-393); THYROID STIMULATING HORMONE 0.259 uIU/ML (0.358-3.740); TOTAL PROTEIN 7.4 GM/DL (6.4-8.2)
[2021-01-22] MEDS ORDERED: ISOVUE-370 76% 100ML VIAL As Ordered ONE (17:46)
[2021-01-22] MEDS ORDERED: ASPI81TA26 (18:01)
[2021-01-22] MEDS ORDERED: ESCITALOPRAM (18:01)
[2021-01-22] MEDS ORDERED: NICO7DIS30 (18:01)
[2021-01-22] MEDS ORDERED: LEVO112T2 (18:01)
--- NOTE | 2021-01-22 18:11 | REPVR ---
PROCEDURE INFORMATION: Exam: CTA Chest With Contrast Exam date and time: 01/22/2021 5:41 PM Age: 55 years old Clinical indication: Shortness of breath; Additional info: Abrupt onset of SOB; R/O pe TECHNIQUE: Imaging protocol: Computed tomographic angiography of the chest with contrast. 3D rendering (Not supervised by radiologist): MIP reconstructed images were created by the technologist. Radiation optimization: All CT scans at this facility use at least one of these dose optimization techniques: automated exposure control; mA and/or kV adjustment per patient size (includes targeted exams where dose is matched to clinical indication); or iterative reconstruction. Contrast material: ISOVUE 370; Contrast volume: 75 ml; Contrast route: INTRAVENOUS (IV); COMPARISON: SC PORTABLE CHEST X-RAY 01/22/2021 4:43 PM FINDINGS: Pulmonary arteries: No pulmonary artery embolism identified. Aorta: No aortic aneurysm. No aortic dissection. Lungs: Left basilar pulmonary consolidative densities. Inferior lingular pulmonary subsegmental atelectasis. Pleural spaces: Unremarkable. No pneumothorax. No pleural effusion. Heart: Normal. No pericardial effusion. Lymph nodes: No enlarged lymph nodes. Bones/joints: Diffuse osteopenia. Mild thoracic spine vertebral body marginal osteophytes. Left scapular inferior glenoid tuberosity suture anchors. Soft tissues: Unremarkable. IMPRESSION: 1. No pulmonary artery embolism identified. 2. Left basilar pulmonary consolidative densities. Pneumonitis is difficult to exclude. Clinical correlation is recommended. Electronically signed by: Jay Shaikh On 01/22/2021 18:10:53 PM
[2021-01-22] MEDS ORDERED: NS 1,000 ML IV ONE (19:40)
[2021-01-22] MEDS ORDERED: LevoFLOXacin IV 750 MG in IV 1 EA IV ONE (19:40)
[2021-01-22] MEDS ORDERED: KETOROLAC 30 MG/ML 1ML VIAL IV ONE (19:40)
[2021-01-22] MEDS ORDERED: LEVO750T14 PO (21:32)
[2021-01-22 21:45] VITALS: BP 120/57
== END 2021-01-22 21:51 | disposition home or self-care (01) ==
LOC: M ED 16:19
DX: J18.9 Pneumonia, unspecified organism (principal); R00.0 Tachycardia, unspecified; F32.9 Major depressive disorder, single episode, unspecified; E03.9 Hypothyroidism, unspecified; F17.200 Nicotine dependence, unspecified, uncomplicated
CPT/HCPCS: 71045; 71275; 80047; 80076; 83690; 84443; 85025; 87040; 93005; 93041; 94760; 96365; 96366; 96375; 99285; J1885; J1956; Q9967

== ENCOUNTER → 2021-02-09 | Outpatient (CLI) | payer OTHER ==
[~2021-02-09] MED LIST changes: +ASPI81TA26; +ESCITALOPRAM; +LEVO112T2; +LEVO750T14 PO; +NICO7DIS30
--- NOTE | 2021-02-09 12:05 | REP ---
INDICATION: ADDL VIEWS - LEFT BREAST RUSS DENSITY. COMPARISON: Multiple the latest screening examination of 01/14/2021. TECHNIQUE: Diagnostic digital magnified spot compression views of the left breast were obtained in the CC and MLO projections over the region of interest, the lower outer retroareolar region. In addition, diagnostic ultrasonography over the region was obtained. FINDINGS: The tiny retroareolar nodular density seen on the screening examination persists on the diagnostic digital magnified spot compression views. Diagnostic ultrasonography of this region shows a round smoothly marginated 7 mm sized anechoic structure which exhibits posterior wall enhancement and increased through transmission. Shear wave elastography was performed on this showing very low kPa values. IMPRESSION: BIRADS/ACR category 2 benign findings. There is a simple cyst in the left breast as described above. The patient letter being requested is M1. RECOMMENDATION: Repeat screening mammography recommended 1 year (for women over 40). <Electronically signed by Marcio Rose > 02/09/21 [id number]
== END ==
LOC: M WHC 08:38
PROVIDERS: ATTEND Nurse Practitioner Women's Health
DX: N60.02 Solitary cyst of left breast (principal)

== ENCOUNTER → 2021-05-15 | Outpatient (CLI) | payer OTHER ==
[2021-05-15 15:53] LABS: BLOOD UREA NITROGEN 18 MG/DL (7-18); CALCIUM LEVEL 9.4 MG/DL (8.5-10.1); CARBON DIOXIDE LEVEL 26 MEQ/L (21-32); CHLORIDE LEVEL 108 MEQ/L (98-107); CREATININE FOR GFR 1.02 MG/DL (0.55-1.30); FREE T4 1.17 NG/DL (0.76-1.46); GLOMERULAR FILTRATION RATE > 60.0 (>51); GLUCOSE, FASTING 103 MG/DL (70-100); POTASSIUM SERUM 4.1 MEQ/L (3.5-5.1); SODIUM LEVEL 139 MEQ/L (136-145)
--- NOTE | 2021-05-18 08:27 | REP ---
INDICATION: PNEUMONIA, UNSPECIFIED ORGANISM. COMPARISON: 01/22/2021 a portable exam TECHNIQUE: PA and lateral FINDINGS: The cardiomediastinal silhouette is within normal limits. The patchy left lung base opacities seen on the prior portable examination have markedly improved with a minimal residual. Pleural angles remain sharp. Lung arana are otherwise clear. The osseous structures stable and intact. IMPRESSION: Significant improvement. <Electronically signed by Marcio Rose > 05/18/21 [id number]
== END ==
LOC: M PLALAB 14:08
PROVIDERS: ATTEND Student in an Organized Health Care Education/Training Program
DX: J18.9 Pneumonia, unspecified organism (principal); E03.9 Hypothyroidism, unspecified; F41.9 Anxiety disorder, unspecified

== ENCOUNTER → 2021-11-30 | Outpatient (REF) | payer OTHER | LOC: M SFHCPLAZ 14:44 | PROVIDERS: ATTEND Family Medicine | DX: Z53.9 Procedure and treatment not carried out, unspecified reason (principal) ==

== ENCOUNTER → 2021-11-30 | Outpatient (CLI) | payer OTHER ==
[2021-11-30 18:11] LABS: BLOOD UREA NITROGEN 15 MG/DL (7-18); CALCIUM LEVEL 9.2 MG/DL (8.5-10.1); CARBON DIOXIDE LEVEL 27 MEQ/L (21-32); CHLORIDE LEVEL 106 MEQ/L (98-107); CHOLESTEROL LEVEL 224 MG/DL (<200); CHOLESTEROL RISK RATIO 3.929 (<5); CREATININE FOR GFR 0.87 MG/DL (0.55-1.30); GLOMERULAR FILTRATION RATE > 60.0 (>51); GLUCOSE, FASTING 90 MG/DL (70-100); HDL CHOLESTEROL 57 MG/DL (>40); LDL CHOLESTEROL 128 MG/DL (<100); NON-HDL-C 167 MG/DL; POTASSIUM SERUM 4.2 MEQ/L (3.5-5.1); SODIUM LEVEL 138 MEQ/L (136-145); TRIGLYCERIDES LEVEL 197 MG/DL (<150)
== END ==
LOC: M PLALAB 14:53
PROVIDERS: ATTEND Student in an Organized Health Care Education/Training Program
DX: F32.A Depression, unspecified (principal); Z86.79 Personal history of other diseases of the circulatory system

== ENCOUNTER → 2022-05-06 | Outpatient (CLI) | payer OTHER | LOC: M WHC 09:24 | PROVIDERS: ATTEND Advanced Practice Midwife | DX: Z12.31 Encounter for screening mammogram for malignant neoplasm of breast (principal); Z85.9 Personal history of malignant neoplasm, unspecified; Z80.9 Family history of malignant neoplasm, unspecified ==

== ENCOUNTER → 2022-07-21 | Outpatient (CLI) | payer OTHER ==
[~2022-07-21] MED LIST changes: -LEVO112T2; +LEVO112T2 PO
== END ==
LOC: M LABSMTC 09:49
PROVIDERS: ATTEND Internal Medicine Gastroenterology
DX: Z01.812 Encounter for preprocedural laboratory examination (principal); Z11.52 Encounter for screening for COVID-19

== ENCOUNTER 2022-07-26 10:40 | Day surgery (SDC) | payer OTHER ==
[~2022-07-26] VITALS: Ht 157.5 cm; Wt 63.5 kg
[~2022-07-26 10:40] MED LIST changes: +NS 1,000 ML IV ONE
[2022-07-26] MEDS ORDERED: LIDOCAINE 2% 100MG/5ML SDV (FOR ANES.) As Ordered ONE (10:58)
[2022-07-26] MEDS ORDERED: propofoL 200 MG/20 ML VIAL As Ordered ONE ×2 (10:58→12:00)
[2022-07-26 12:20] VITALS: BP 133/63
== END 2022-07-26 12:41 | disposition home or self-care (01) ==
LOC: M OPP 10:40
PROVIDERS: ATTEND Internal Medicine Gastroenterology
DX: Z12.11 Encounter for screening for malignant neoplasm of colon (principal); Z86.010 Personal history of colon polyps; K64.0 First degree hemorrhoids; K57.30 Diverticulosis of large intestine without perforation or abscess without bleeding; Z79.890 Hormone replacement therapy; E03.9 Hypothyroidism, unspecified; F32.9 Major depressive disorder, single episode, unspecified; F41.9 Anxiety disorder, unspecified; E78.00 Pure hypercholesterolemia, unspecified; D64.9 Anemia, unspecified; I10 Essential (primary) hypertension; G43.909 Migraine, unspecified, not intractable, without status migrainosus; Z86.73 Personal history of transient ischemic attack (TIA), and cerebral infarction without residual deficits; Z80.41 Family history of malignant neoplasm of ovary; F17.200 Nicotine dependence, unspecified, uncomplicated

== ENCOUNTER → 2022-08-17 | Outpatient (REF) | payer OTHER ==
[~2022-08-17] MED LIST changes: -NS 1,000 ML IV ONE
== END ==
LOC: M SFHCPLAZ 15:47
PROVIDERS: ATTEND Family Medicine
DX: E03.9 Hypothyroidism, unspecified (principal); Z00.00 Encounter for general adult medical examination without abnormal findings; Z53.8 Procedure and treatment not carried out for other reasons

== ENCOUNTER → 2022-08-17 | Outpatient (CLI) | payer OTHER ==
[2022-08-17 17:26] LABS: BASO # 0.1 10^3/uL (0.0-0.2); BASO % 0.8 % (0.0-1.0); EOS # 0.4 10^3/uL (0.0-0.5); EOS % 4.5 % (0.0-3.0); HEMATOCRIT 41.8 % (36.0-47.0); HEMOGLOBIN 13.8 g/dl (12.0-15.5); LYMPH # 3.5 10^3/uL (1.5-5.0); LYMPH % 42.2 % (24.0-44.0); MEAN CORPUSCULAR HEMOGLOBIN 32.3 pg (27.0-33.0); MEAN CORPUSCULAR VOLUME 97.9 fl (80.0-96.0); MONO # 0.6 10^3/uL (0.0-0.8); MONO % 7.5 % (2.0-8.0); NEUTROPHILS # 3.7 10^3/uL (1.5-8.5); NEUTROPHILS % 44.6 % (36.0-66.0); PLATELET COUNT, AUTOMATED 305 10^3/uL (150-450); RED BLOOD COUNT 4.27 10^6/uL (4.00-5.40); WHITE BLOOD COUNT 8.4 10^3/uL (4.0-10.0)
[2022-08-17 18:05] LABS: ALBUMIN 3.9 G/DL (3.2-5.2); ALKALINE PHOSPHATASE 76 U/L (46-116); ALT/SGPT 28 U/L (7.0-40); AST/SGOT 24 U/L (<34); BILIRUBIN,TOTAL 0.4 MG/DL (0.3-1.2); BLOOD UREA NITROGEN 19 MG/DL (9-23); CALCIUM LEVEL 9.3 MG/DL (8.5-10.1); CARBON DIOXIDE LEVEL 26 MMOL/L (20-31); CHLORIDE LEVEL 102 MMOL/L (98-107); CHOLESTEROL LEVEL 246 MG/DL (<200); CHOLESTEROL RISK RATIO 3.86 (<5); CREATININE FOR GFR 0.86 MG/DL (0.55-1.30); FREE T4 1.67 NG/DL (0.89-1.76); GLOMERULAR FILTRATION RATE > 60.0 (>51); GLUCOSE, FASTING 91 MG/DL (60-100); HDL CHOLESTEROL 63.6 MG/DL (>40); LDL CHOLESTEROL 151.2 MG/DL (<100); NON-HDL-C 182 MG/DL; POTASSIUM SERUM 4.4 MMOL/L (3.5-5.1); SODIUM LEVEL 138 MMOL/L (136-145); TRIGLYCERIDES LEVEL 156 MG/DL (<150); VITAMIN B12 LEVEL 309 PG/ML (211-911)
[2022-08-17 20:26] LABS: HEMOGLOBIN A1c 5.4 % (4.0-6.0)
== END ==
LOC: M PLALAB 16:09
PROVIDERS: ATTEND Student in an Organized Health Care Education/Training Program
DX: Z00.00 Encounter for general adult medical examination without abnormal findings (principal); E03.9 Hypothyroidism, unspecified; D75.89 Other specified diseases of blood and blood-forming organs

== ENCOUNTER → 2022-11-25 | Outpatient (REF) | payer OTHER | LOC: M SFHCPLAZ 14:23 | PROVIDERS: ATTEND Internal Medicine Hematology | DX: Z53.9 Procedure and treatment not carried out, unspecified reason (principal) ==

== ENCOUNTER → 2023-05-20 | Outpatient (CLI) | payer OTHER ==
[~2023-05-20] MED LIST changes: +LEVO100T5; +LISI20TA33 PO
[2023-05-20 18:38] LABS: FREE T4 0.21 NG/DL (0.89-1.76)
[2023-05-20 18:40] LABS: THYROID STIMULATING HORMONE > 150.000 uIU/ML (0.55-4.78)
== END ==
LOC: M PLALAB 15:40
PROVIDERS: ATTEND Student in an Organized Health Care Education/Training Program
DX: E03.9 Hypothyroidism, unspecified (principal)

== ENCOUNTER 2023-05-23 10:37 | Emergency (ER) | payer OTHER ==
[~2023-05-23] VITALS: Ht 157.5 cm; Wt 71.2 kg
[~2023-05-23 10:37] MED LIST changes: -LEVO100T5; -LISI20TA33 PO
[2023-05-23] MEDS ORDERED: LEVO100T5 (10:54)
[2023-05-23] MEDS ORDERED: LABETALOL 100MG/20ML VIAL IV PRN (12:15)
[2023-05-23] MEDS ORDERED: atenoloL 50 MG TAB PO ONE (12:15)
[2023-05-23 12:42] VITALS: BP 171/94
[2023-05-23 12:58] LABS: BASO # 0.1 10^3/uL (0.0-0.2); BASO % 0.9 % (0.0-1.0); EOS # 0.3 10^3/uL (0.0-0.5); EOS % 3.5 % (0.0-3.0); HEMATOCRIT 40.2 % (36.0-47.0); HEMOGLOBIN 13.4 g/dl (12.0-15.5); LYMPH # 2.9 10^3/uL (1.5-5.0); LYMPH % 36.7 % (24.0-44.0); MEAN CORPUSCULAR HEMOGLOBIN 32.3 pg (27.0-33.0); MEAN CORPUSCULAR HGB CONC 33.3 g/dl (32.0-36.5); MEAN CORPUSCULAR VOLUME 96.9 fl (80.0-96.0); MONO # 0.4 10^3/uL (0.0-0.8); MONO % 4.5 % (2.0-8.0); NEUTROPHILS # 4.2 10^3/uL (1.5-8.5); NEUTROPHILS % 53.8 % (36.0-66.0); PLATELET COUNT, AUTOMATED 274 10^3/uL (150-450); RED BLOOD COUNT 4.15 10^6/uL (4.00-5.40); WHITE BLOOD COUNT 7.8 10^3/uL (4.0-10.0)
[2023-05-23 13:07] LABS: INR 0.98; PROTHROMBIN TIME 12.7 SECONDS (12.5-14.5)
[2023-05-23 13:22] LABS: CK-MB VALUE MASS 1.8 NG/ML (<3.6)
[2023-05-23 13:23] LABS: RSV AMPLIFICATION NEGATIVE (NEGATIVE)
[2023-05-23 13:24] LABS: ALBUMIN 3.9 G/DL (3.2-5.2); ALKALINE PHOSPHATASE 83 U/L (46-116); ALT/SGPT 26 U/L (7.0-40); AST/SGOT 31 U/L (<34); BILIRUBIN,DIRECT < 0.1 MG/DL (<0.4); BILIRUBIN,TOTAL 0.3 MG/DL (0.3-1.2); BLOOD UREA NITROGEN 11 MG/DL (9-23); CARBON DIOXIDE LEVEL 22 MMOL/L (20-31); CHLORIDE LEVEL 107 MMOL/L (98-107); CREATININE FOR GFR 0.86 MG/DL (0.55-1.30); GLOMERULAR FILTRATION RATE > 60.0 (>51); GLUCOSE, FASTING 87 MG/DL (60-100); POTASSIUM SERUM 4.2 MMOL/L (3.5-5.1); SODIUM LEVEL 140 MMOL/L (136-145); TOTAL PROTEIN 6.8 G/DL (5.7-8.2)
[2023-05-23 13:25] LABS: CPK CREATINE PHOSPHOKINASE 379 U/L (34-145); MB/CK RELATIVE INDEX 0.47 (< OR =4)
[2023-05-23 14:16] LABS: CK-MB VALUE MASS 1.5 NG/ML (<3.6)
[2023-05-23 14:22] LABS: MB/CK RELATIVE INDEX 0.41 (< OR =4)
[2023-05-23] MEDS ORDERED: LISI20TA33 PO (16:23)
[2023-05-23 17:22] VITALS: BP 153/88; TEMP 97.9; O2SAT 97
== END 2023-05-23 17:26 | disposition home or self-care (01) ==
LOC: M ED 10:37
DX: I10 Essential (primary) hypertension (principal); G60.9 Hereditary and idiopathic neuropathy, unspecified; Z86.73 Personal history of transient ischemic attack (TIA), and cerebral infarction without residual deficits; F17.200 Nicotine dependence, unspecified, uncomplicated; Z79.899 Other long term (current) drug therapy

== ENCOUNTER → 2023-06-30 | Outpatient (REF) | payer OTHER ==
[~2023-06-30] MED LIST changes: +LEVO100T5; +LISI20TA33 PO
== END ==
LOC: M SFHCPLAZ 16:52
PROVIDERS: ATTEND Internal Medicine Hematology
DX: Z53.9 Procedure and treatment not carried out, unspecified reason (principal)

== ENCOUNTER → 2023-08-19 | Outpatient (CLI) | payer OTHER ==
[2023-08-19 18:44] LABS: THYROXINE (T4) 17.1 UG/DL (4.5-10.9); VITAMIN B12 LEVEL 271 PG/ML (211-911)
[2023-08-19 18:45] LABS: FOLATE 10.16 NG/ML (>5.4); THYROID STIMULATING HORMONE 0.124 uIU/ML (0.55-4.78)
[2023-08-19 18:46] LABS: RHEUMATOID FACTOR QUANT < 3.5 IU/ML (<14); TOTAL 25(OH) VITAMIN D 9.2 NG/ML (20.0-100.0)
[2023-08-19 19:05] LABS: FREE THYROXINE INDEX 7.8 % (1.3-4.8); HEMOGLOBIN A1c 5.8 % (4.0-6.0); T UPTAKE 45.9 % (22.5-37.0)
== END ==
LOC: M PLALAB 15:41
PROVIDERS: ATTEND Psychiatry & Neurology Neurology
DX: G62.9 Polyneuropathy, unspecified (principal); R42 Dizziness and giddiness; E53.8 Deficiency of other specified B group vitamins; E55.9 Vitamin D deficiency, unspecified

== ENCOUNTER → 2023-11-25 | Outpatient (CLI) | payer OTHER | LOC: M RAD 16:29 | PROVIDERS: ATTEND Student in an Organized Health Care Education/Training Program | DX: Z12.2 Encounter for screening for malignant neoplasm of respiratory organs (principal); F17.200 Nicotine dependence, unspecified, uncomplicated ==

== ENCOUNTER → 2024-05-30 | Outpatient (CLI) | payer OTHER, SELFPAY ==
[~2024-05-30] MED LIST changes: -LEVO750T14 PO; +LEVO75TAB PO
== END ==
LOC: M WHC 14:56
PROVIDERS: ATTEND Advanced Practice Midwife
DX: Z12.31 Encounter for screening mammogram for malignant neoplasm of breast (principal); R92.333 Mammographic heterogeneous density, bilateral breasts